=== PATIENT | female | born 1940 | race Caucasian/White ===

== ENCOUNTER 2016-08-27 09:11 | Emergency (ER) | payer MEDICARE, BC ==
[2016-08-27 09:41] VITALS: BP 126/80
--- NOTE | 2016-08-27 10:03 | EDM.PDOC ---
ED HPI GENERAL MEDICAL PROBLEM - General Chief Complaint: Skin Complaint Stated Complaint: POISON AROLDO ON FACE? Time Seen by Provider: 08/27/16 09:52 Source of Information: Reports: Patient, RN Notes Reviewed History Limitations: Reports: No Limitations - History of Present Illness INITIAL COMMENTS - FREE TEXT/NARRATIVE: 76-year-old female presents emergency department today with rash to both sides of her face forehead and right ear she was out in the garden she thinks she may have been exposed to poison aroldo, does have a history of poison aroldo dermatitis - Related Data Allergies Allergy/AdvReac Type Severity Reaction Status Date / Time No Known Allergies Allergy Verified 08/27/16 09:35 Home Meds: Home Meds Omeprazole 20 mg PO DAILY 08/27/16 [History] amLODIPine [Norvasc] 5 mg PO DAILY 08/27/16 [History] Past Medical History HEENT History: Reports: Other (See Below) Other HEENT History: rash on face weeping at times Cardiovascular History: Reports: Hypertension Gastrointestinal History: Reports: GERD Musculoskeletal History: Reports: Osteoarthritis Dermatologic History: Reports: Other (See Below) Other Dermatologic History: rash on face Social & Family History - Tobacco Use Smoking Status *Q: Former Smoker Used Tobacco, but Quit: Yes Month Tobacco Last Used: 36 - Caffeine Use Caffeine Use: Reports: Coffee - Recreational Drug Use Recreational Drug Use: No ED ROS GENERAL - Review of Systems Review Of Systems: See Below Constitutional: Reports: No Symptoms Respiratory: Reports: No Symptoms Cardiovascular: Reports: No Symptoms Skin: Reports: Rash, Change in Color ED EXAM, SKIN/RASH Exam: See Below Text/Narrative:: Examination of the integument system there is a linear line of vesicles along the forehead she has erythema and edema appreciated on both sides of the nose there is denuding of the skin on the bridge in the nose a few scant vesicles are noted on the right ear Exam Limited By: No Limitations General Appearance: Alert, WD/WN, No Apparent Distress Respiratory/Chest: No Respiratory Distress, Lungs Clear, Normal Breath Sounds, No Accessory Muscle Use Cardiovascular: Regular Rate, Rhythm, No Murmur Course - Vital Signs Last Recorded V/S: Last Vital Signs Temp 97.8 F 08/27/16 09:46 Pulse 100 08/27/16 09:32 Resp 17 08/27/16 09:32 BP 126/80 08/27/16 09:32 Pulse Ox 98 08/27/16 09:32 Departure - Departure Time of Disposition: 10:01 Disposition: Home, Self-Care 01 Condition: Good Clinical Impression: Poison aroldo dermatitis - Discharge Information Forms: ED Department Discharge Additional Instructions: Take full course of prednisone also use Benadryl for symptomatic care, Please followup with your primary care provider in 7-10 days if not better, please call return to the emergency department with worsening of symptoms. - Assessment/Plan Plan: Assessment Acuity = acute Site and laterality = poison aroldo dermatitis Etiology = secondary to exposure poison aroldo Manifestations = none Location of injury = home Lab values = none Plan Prednisone 21 days, follow-up with primary care 7-10 days if no improvement Patient was in agreement with the plan all questions were answered, they were instructed to return to the emergency department or call for worsening symptoms. This note was dictated using [employer] voice recognition software please call with any questions.
== END 2016-08-27 10:31 | disposition home or self-care (01) ==
LOC: JP.ED 09:11
DX: L23.7 Allergic contact dermatitis due to plants, except food (principal); I10 Essential (primary) hypertension; K21.9 Gastro-esophageal reflux disease without esophagitis; M19.90 Unspecified osteoarthritis, unspecified site; Z87.891 Personal history of nicotine dependence; Z79.899 Other long term (current) drug therapy
CPT/HCPCS: 99283